=== PATIENT | female | born 1985 | race Caucasian/White ===

== ENCOUNTER 2023-07-05 23:25 | Emergency (ER) | payer OTHER, SELFPAY ==
[2023-07-05 23:40] VITALS: BP 132/91; PULSE 100; TEMP 36.4; O2SAT 100; BMI 32.4
--- NOTE | 2023-07-05 23:47 | ED.ABDPAIN1 ---
HPI - Abdominal Pain General Chief Complaint: Abdominal Pain Stated Complaint: R FLANK PAIN Time Seen by Provider: 07/05/23 23:45 Source: patient Mode of arrival: walk-in History of Present Illness HPI narrative: presents complaining of RLQ pain that radiates to her right flank for past 3 days. No fever or nausea. No urinary symptoms Related Data Home Medications ?Medication ?Instructions ?Recorded ?Confirmed aripiprazole 10 mg tablet mg 07/05/23 buspirone 15 mg tablet mg 07/05/23 escitalopram oxalate 20 mg tablet mg 07/05/23 hydrochlorothiazide 25 mg tablet mg 07/05/23 hydroxyzine pamoate 25 mg capsule mg 07/05/23 lamotrigine 100 mg tablet mg 07/05/23 metformin 500 mg tablet mg 07/05/23 solifenacin 10 mg tablet mg PO 07/05/23 Allergies Allergy/AdvReac Type Severity Reaction Status Date / Time nystatin Allergy Unknown Verified 07/05/23 23:44 Review of Systems ROS Status of ROS 10 or more systems reviewed and unremarkable except as noted in history and below Exam Constitutional Vital Signs, click to edit/add: Last Vital Signs Temp 97.6 F 07/05/23 23:40 Pulse 100 H 07/05/23 23:40 Resp 18 07/05/23 23:40 BP 132/91 07/05/23 23:40 Pulse Ox 100 07/05/23 23:40 O2 Del Method Room Air 07/05/23 23:40 Common normals: no apparent distress, average body habitus, oriented x3, no limitations, healthy appearing, alert and well nourished [facility] Common normals: normocephalic and head/scalp atraumatic Eye Common normals: EOMs intact bilaterally and conjunctivae normal Respiratory Common normals: normal respiratory effort, no retractions, no use of accessory muscles and clear to auscultation bilaterally Cardio Common normals: regular rate, regular rhythm, S1 normal heart sound and S2 normal heart sound GI Other: mild tenderness RLQ Extremity Common normals: normal to inspection and full ROM Neuro Common normals: oriented x3, moves all extremities and no focal motor deficits Psych Appearance: grossly normal Course Vital Signs Vital signs: Vital Signs Temperature 97.6 F 07/05/23 23:40 Pulse Rate 100 H 07/05/23 23:40 Respiratory Rate 18 07/05/23 23:40 Blood Pressure 132/91 07/05/23 23:40 Pulse Oximetry 100 07/05/23 23:40 Oxygen Delivery Method Room Air 07/05/23 23:40 Temperature 97.6 F 07/05/23 23:40 Pulse Rate 100 H 07/05/23 23:40 Respiratory Rate 18 07/05/23 23:40 Blood Pressure 132/91 07/05/23 23:40 Pulse Oximetry 100 07/05/23 23:40 Oxygen Delivery Method Room Air 07/05/23 23:40 MDM - Abdominal Pain MDM Narrative Medical decision making narrative: patient presents complaining of lower abdominal pain. Mild tenderness on exam. No guarding. CT with mild fat stranding findings about her bladder. UA positive. Patient admits she does not have any pain at this time. labs did demonstrate hypokalemia and she was supplemented in the department Lab Data Labs: Lab Results 07/05/23 07/06/23 Range/Units 23:56 01:16 WBC 11.4 H (4.0-11.0) 10^3/uL RBC 4.51 (4.20-5.40) 10^6/uL Hgb 12.2 (12.0-16.0) g/dL Hct 37.9 (36.0-48.0) % MCV 84.0 (81.0-99.0) fL MCH 27.1 (26.7-34.0) pg MCHC 32.2 (29.9-35.2) g/dL RDW 12.9 (11.0-15.0) % Plt Count 584 H (150-450) 10^3/uL MPV 8.1 L (9.5-13.5) fL Neut % (Auto) 55.1 (43.0-75.0) % Lymph % (Auto) 34.7 (20.5-60.0) % [place] % (Auto) 8.1 (1.7-12.0) % Eos % (Auto) 1.5 (0.9-7.0) % Baso % (Auto) 0.3 (0.2-2.0) % Neut # (Auto) 6.3 (1.4-6.5) 10^3/uL Lymph # (Auto) 4.0 H (1.2-3.8) 10^3/uL [place] # (Auto) 0.9 H (0.3-0.8) 10^3/uL Eos # (Auto) 0.2 (0.0-0.7) 10^3/uL Baso # (Auto) 0.0 (0.0-0.1) 10^3/uL Abs Immat Gran (auto) 0.03 (0.00-0.03) 10^3/uL Imm/Tot Granulo (auto) 0.3 (0.0-0.5) % Sodium 138 (136-145) mmol/L Potassium 2.9 L* (3.5-5.1) mmol/L Chloride 99 (98-107) mmol/L Carbon Dioxide 27.5 (21.0-32.0) mmol/L Anion Gap 14.4 BUN 12.0 (7.0-18.0) mg/dL Creatinine 1.24 H (0.55-1.02) mg/dL Est GFR ( Amer) 60 (>=60) Est GFR (Non-Af Amer) 49 L (>=60) BUN/Creatinine Ratio 9.7 Glucose 101 (74-106) mg/dL Lactate 1.6 (0.4-2.0) mmol/L Calcium 8.8 (8.5-10.1) mg/dL Total Bilirubin 0.5 (0.2-1.0) mg/dL AST 17 (15-37) U/L ALT 22 (14-59) U/L Alkaline Phosphatase 88 (46-116) U/L Total Protein 8.2 (6.4-8.2) g/dL Albumin 3.4 (3.4-5.0) g/dL Globulin 4.8 g/dL Albumin/Globulin Ratio 0.7 Lipase 32.0 (16.0-77.0) U/L Urine Color Lt. yellow (YELLOW) Urine Clarity Cloudy A (CLEAR) Urine pH 6.5 (5.0-9.0) Ur Specific [place] 1.020 (1.005-1.025) Urine Protein Trace (NEG/TRACE) mg/dL Urine Glucose (UA) Negative (NEGATIVE) mg/dL Urine Ketones Negative (NEGATIVE) mg/dL Urine Occult Blood Small A (NEGATIVE) Urine Nitrite Positive A (NEGATIVE) Urine Bilirubin Negative (NEGATIVE) Urine Urobilinogen 0.2 (0.2-1.0) EU/dL Ur Leukocyte Esterase Large A (NEGATIVE) Urine RBC 0-2 (0-2) #/HPF Urine WBC >100 A (NONE SEEN) #/HPF Ur Squamous Epith Cells Many A (NONE/RARE) #/LPF Urine Crystals None seen (None Seen) #/HPF Urine Bacteria Large A (NONE SEEN) #/HPF Urine Casts None seen (NONE SEEN) #/LPF Urine Mucus Trace A (NONE SEEN) Ur Culture Indicated? Yes Imaging Data Abdominal x-ray: Radiologist's impression: ITS Impressions Abdomen/Pelvis CT 07/06/23 00:00 IMPRESSION: 1. Nonspecific mild fat stranding along the left lateral urinary bladder wall may reflect mild cystitis. No other potential acute findings are seen in the abdomen or pelvis. 2. Normal appendix. No specific cause of right lower quadrant pain is seen. Nonacute findings are described above. Electronically authenticated by: YON VELAZQUEZ Date: 07/06/2023 01:39 Discharge Plan Discharge Stand Alone Forms: Portal Instructions Chief Complaint: Abdominal Pain Clinical Impression: Cystitis, Hypokalemia Patient Disposition: Home, Self-Care Prescriptions / Home Meds: No Action metformin 500 mg tablet hydrochlorothiazide 25 mg tablet lamotrigine 100 mg tablet buspirone 15 mg tablet hydroxyzine pamoate 25 mg capsule escitalopram oxalate 20 mg tablet aripiprazole 10 mg tablet solifenacin 10 mg tablet PO Print Language: Slovak Instructions: Urinary Tract Infection in Women (DC), Hypokalemia (ED) Additional Instructions: follow up with your doctor this week and have your potassium level rechecked Referrals: ABBY KOWALSKI [Primary Care Provider] - 1 week
--- NOTE | 2023-07-06 | CT_ITS ---
The [address] [address] Patient Name: NORA ALFARO MRN: [id number] date: 1985 Sex: F Assigned Patient Location: ER Current Patient Location: Accession/Order Number: [id number] Exam Date: 07/06/2023 00:26 Report Date: 07/06/2023 01:39 At the request of: VI WARNER Procedure: CT abdomen pelvis wo con EXAM: CT abdomen pelvis wo con HISTORY: RLQ pain COMPARISON: CT pelvis, 01/15/2021. TECHNIQUE: Nonenhanced CT imaging the abdomen and pelvis was performed with sagittal and coronal reconstructions. Dose reduction techniques were achieved by using automated exposure control and/or adjustment of mA and/or kV according to patient size and/or use of iterative reconstruction technique. FINDINGS: CT ABDOMEN: The lung bases are clear. The imaged heart is unremarkable. A 0.5 cm hypodense lesion in the anterior right hepatic segment is too small to characterize but likely a benign cyst. There is a 0.5 cm medial right hepatic lobe cyst on image 35. The liver is otherwise unremarkable. The gallbladder, pancreas, spleen, adrenal glands, stomach, small bowel, aorta and IVC appear grossly unremarkable, allowing for the lack of contrast. Multifocal left renal cortical scarring is noted. The left kidney has an extrarenal pelvis, normal variant. The right kidney is unremarkable. There is no ureterolithiasis or hydronephrosis on either side. A small fat-containing umbilical hernia is present. CT PELVIS: A normal appendix is seen on images 89-104 of series 3. The pelvic small bowel loops, colon, and prostate are unremarkable. There is mild fat stranding along the left lateral urinary bladder, nonspecific. No free fluid, loculated fluid, free air or soft tissue gas is seen in the abdomen or pelvis. No acute osseous abnormality or suspicious bony lesion is seen. CT/CT abdomen pelvis wo con IMPRESSION: 1. Nonspecific mild fat stranding along the left lateral urinary bladder wall may reflect mild cystitis. No other potential acute findings are seen in the abdomen or pelvis. 2. Normal appendix. No specific cause of right lower quadrant pain is seen. Nonacute findings are described above. Electronically authenticated by: YON VELAZQUEZ Date: 07/06/2023 01:39
[2023-07-06] MEDS: 0.9 % SODIUM CHLORIDE 1,000 ML 999 ML IV (00:05)
[2023-07-06 00:13] LABS: Basophils Percent Auto 0.3 % (0.2-2.0); Eosinophils Absolute Auto 0.2 10^3/uL (0.0-0.7); Eosinophils Percent Auto 1.5 % (0.9-7.0); Hematocrit 37.9 % (36.0-48.0); Hemoglobin 12.2 g/dL (12.0-16.0); Immature Granulocytes Abs Auto 0.03 10^3/uL (0.00-0.03); Immature Granulocytes Pct Auto 0.3 % (0.0-0.5); Lymphocytes Percent Auto 34.7 % (20.5-60.0); Mean Corpuscular HGB Conc 32.2 g/dL (29.9-35.2); Mean Corpuscular Hemoglobin 27.1 pg (26.7-34.0); Mean Platelet Volume 8.1 fL (9.5-13.5); Monocytes Absolute Auto 0.9 10^3/uL (0.3-0.8); Monocytes Percent Auto 8.1 % (1.7-12.0); Neutrophils Absolute Auto 6.3 10^3/uL (1.4-6.5); Neutrophils Percent Auto 55.1 % (43.0-75.0); Platelet Count 584 10^3/uL (150-450); Red Blood Count 4.51 10^6/uL (4.20-5.40); Red Cell Distribution Width 12.9 % (11.0-15.0); White Blood Count 11.4 10^3/uL (4.0-11.0)
[2023-07-06 00:22] LABS: Alanine Aminotransferase 22 U/L (14-59); Albumin Globulin Ratio 0.7; Albumin Level 3.4 g/dL (3.4-5.0); Alkaline Phosphatase 88 U/L (46-116); Anion Gap 14.4; Aspartate Amino Transferase 17 U/L (15-37); BUN Creatinine Ratio 9.7; Bilirubin Total 0.5 mg/dL (0.2-1.0); Calcium 8.8 mg/dL (8.5-10.1); Carbon Dioxide 27.5 mmol/L (21.0-32.0); Chloride 99 mmol/L (98-107); Estimated GFR (African America 60 (>=60); Estimated GFR (Non-African Ame 49 (>=60); Globulin 4.8 g/dL; Glucose 101 mg/dL (74-106); Sodium 138 mmol/L (136-145); Total Protein 8.2 g/dL (6.4-8.2)
[2023-07-06 00:25] LABS: Lactate/Lactic Acid 1.6 mmol/L (0.4-2.0)
[2023-07-06 00:26] LABS: Potassium 2.9 mmol/L (3.5-5.1)
[2023-07-06] MEDS: POTASSIUM CHLORIDE 10 MEQ ER TABLET 40 MEQ PO (00:47)
[2023-07-06 01:23] LABS: Bilirubin Urine NEGATIVE (NEGATIVE); Blood Urine SMALL (NEGATIVE); Clarity Urine CLOUDY (CLEAR); Color Urine LT. YELLOW (YELLOW); Glucose Urine UA NEGATIVE (NEGATIVE); Ketones Urine NEGATIVE (NEGATIVE); Leukocyte Esterase Urine LARGE (NEGATIVE); Nitrite Urine POSITIVE (NEGATIVE); Protein Urine TRACE mg/dL (NEG/TRACE); Urobilinogen Urine 0.2 EU/dL (0.2-1.0); pH Urine 6.5 (5.0-9.0)
[2023-07-06 01:27] LABS: Urine Microscopic Indicated YES
[2023-07-06 01:39] LABS: Bacteria Urine LARGE #/HPF (NONE SEEN); RBC Urine 0-2 #/HPF (0-2); WBC Urine >100 #/HPF (NONE SEEN)
[2023-07-06 01:40] LABS: Cast Seen? NONE SEEN #/LPF (NONE SEEN); Crystals Seen? None Seen #/HPF (None Seen); Mucus Urine TRACE (NONE SEEN); Squamous Epithelial Cell Urine MANY #/LPF (NONE/RARE)
[2023-07-06 01:41] LABS: Urine Culture Indicated YES
[2023-07-06] MEDS: SULFAMETHOXAZOLE/TRIMETHOPRIM 800-160 MG TABLET 1 TAB PO (02:19)
== END 2023-07-06 02:20 | disposition home or self-care (01) ==
PROVIDERS: Emergency Provider Internal Medicine; PCP Family Medicine
DX: N30.90 Cystitis, unspecified without hematuria (principal); E87.6 Hypokalemia; Z79.899 Other long term (current) drug therapy; Z79.84 Long term (current) use of oral hypoglycemic drugs
CPT/HCPCS: 36415; 74176; 80053; 81001; 83605; 83690; 85025; 87086; 87150; 87186; 99284

== ENCOUNTER 2024-01-22 16:57 | Emergency (ER) | payer OTHER, SELFPAY ==
[2024-01-22 17:00] VITALS: BP 134/80; PULSE 88; TEMP 36.6; O2SAT 100; BMI 33.5
--- NOTE | 2024-01-22 17:11 | XR_ITS ---
[address] [address] Patient Name: NORA ALFARO MRN: [id number] date: 1985 Sex: F Assigned Patient Location: ER Current Patient Location: ED.MAIN Accession/Order Number: [id number] Exam Date: 01/22/2024 17:24 Report Date: 01/22/2024 19:50 At the request of: TERESA SANCHEZ Procedure: XR shoulder RT min 2V EXAMINATION: XR shoulder RT min 2V, , 01/22/2024 5:24 PM EDT INDICATION: Atraumatic pain HISTORY: Ordering Provider Reason for Exam: Atraumatic pain Technologist Note: Additional: COMPARISON: None. TECHNIQUE: Right shoulder x-ray: 3 view(s). FINDINGS: No acute fracture. Glenohumeral and acromioclavicular joints are anatomically aligned. Joint spaces are preserved. Soft tissues are unremarkable. XR/XR shoulder RT min 2V IMPRESSION: No acute fracture or traumatic malalignment. Electronically authenticated by: YONI STALEY Date: 01/22/2024 19:50
--- NOTE | 2024-01-22 17:23 | ED.EXTPRO1 ---
HPI - Extremity Problem General Chief complaint: Extremity Problem, Nontraumatic Stated complaint: Shoulder Injury Time Seen by Provider: 01/22/24 17:07 Source: patient Mode of arrival: walk-in History of Present Illness HPI Narrative: 38-year-old female presents for right shoulder pain. It hurts at the top of the shoulder and there was no specific injury but she attributes it to overuse at work. She states that they are making her do longer stretches of time on a particular machine than she should be. She is right-handed. It hurts more to move it. Related Data Home Medications ?Medication ?Instructions ?Recorded ?Confirmed aripiprazole 10 mg tablet mg 07/05/23 buspirone 15 mg tablet mg 07/05/23 escitalopram oxalate 20 mg tablet mg 07/05/23 hydrochlorothiazide 25 mg tablet mg 07/05/23 hydroxyzine pamoate 25 mg capsule mg 07/05/23 lamotrigine 100 mg tablet mg 07/05/23 metformin 500 mg tablet mg 07/05/23 solifenacin 10 mg tablet mg PO 07/05/23 Previous Rx's ?Medication ?Instructions ?Recorded etodolac 400 mg tablet 400 mg PO Q8H PRN pain #20 tabs 01/22/24 methocarbamol 500 mg tablet 500 mg PO Q8H PRN pain #20 tabs 01/22/24 Allergies Allergy/AdvReac Type Severity Reaction Status Date / Time nystatin Allergy Unknown Verified 07/05/23 23:44 Review of Systems ROS Narrative A ten point review of systems is negative except as noted above. PFSH PFSH Social History Little interest or pleasure in doing things: not at all Feeling down, depressed, or hopeless: not at all Exam Narrative Exam Narrative: Nurses note and vital signs reviewed and patient is not hypoxic. General: The patient appears well and in no apparent distress. Patient is resting comfortably on cart. Skin: Warm, dry, no pallor noted. There is no rash noted. Head: Normocephalic, atraumatic Eye: Normal conjunctiva, no drainage Ears, Nose, Mouth, and Throat: oral mucosa is moist. Nares patent. Cardiovascular: Regular Rate and Rhythm Respiratory: Patient is in no distress, no accessory muscle use Back: non-tender GI: Normal bowel sounds, no tenderness to palpation, no masses appreciated. No rebound, guarding, or rigidity noted. Musculoskeletal: The right shoulder has no deformity and has full range of motion. Radial pulse 2+. Elbow and wrist are nontender and have full range of motion as well. Neurological: A&O, normal speech Psychiatric: Cooperative Constitutional Vital Signs, click to edit/add: Last Vital Signs Temp 98 F 01/22/24 17:00 Pulse 88 01/22/24 17:00 Resp 20 01/22/24 17:00 BP 134/80 01/22/24 17:00 Pulse Ox 100 01/22/24 17:00 Course Vital Signs Vital signs: Vital Signs Temperature 98 F 01/22/24 17:00 Pulse Rate 88 01/22/24 17:00 Respiratory Rate 20 01/22/24 17:00 Blood Pressure 134/80 01/22/24 17:00 Pulse Oximetry 100 01/22/24 17:00 Temperature 98 F 01/22/24 17:00 Pulse Rate 88 01/22/24 17:00 Respiratory Rate 20 01/22/24 17:00 Blood Pressure 134/80 01/22/24 17:00 Pulse Oximetry 100 01/22/24 17:00 MDM - Extremity (Nontraumatic) MDM Narrative Medical decision making narrative: X-ray of the shoulder on my interpretation shows no acute findings. My clinical impression is that this is muscular pain. She is provided prescriptions for Lodine and Robaxin and will follow-up with her doctor if symptoms persist. Treatment diagnosis and follow-up were discussed with the patient. Differential Diagnosis Differential diagnosis: Likely other (Muscle strain, arthritis, calcific tendinitis, rotator cuff injury) Imaging Data Right shoulder x-ray: My impression: No acute findings Discharge Plan Discharge Chief Complaint: Extremity Problem, Nontraumatic Clinical Impression: Pain in right shoulder Patient Disposition: Home, Self-Care Time of Disposition Decision: 17:56 Condition: Good Mode of Transportation: Private Vehicle Prescriptions / Home Meds: New methocarbamol 500 mg tablet 500 mg PO Q8H PRN (Reason: pain) Qty: 20 0RF etodolac 400 mg tablet 400 mg PO Q8H PRN (Reason: pain) Qty: 20 0RF No Action metformin 500 mg tablet hydrochlorothiazide 25 mg tablet lamotrigine 100 mg tablet buspirone 15 mg tablet hydroxyzine pamoate 25 mg capsule escitalopram oxalate 20 mg tablet aripiprazole 10 mg tablet solifenacin 10 mg tablet PO Print Language: Pakistani Instructions: Shoulder Pain (ED) Additional Instructions: Follow-up with Dr. Woods if no improvement. Referrals: ABBY WOODS [Primary Care Provider] - 1 week
== END 2024-01-22 18:19 | disposition home or self-care (01) ==
PROVIDERS: Emergency Provider Emergency Medicine; PCP Family Medicine
DX: M25.511 Pain in right shoulder (principal)
CPT/HCPCS: 73030; 99283